=== PATIENT | female | born 1995 ===

== ENCOUNTER 2018-12-02 21:07 | Emergency (ER) | payer SELFPAY ==
--- NOTE | 2018-12-02 22:10 | UC ---
Skin Complaint HPI - HPI Summary HPI Summary: 23 y/o female presents to the urgent care c/o hives on her back , axilla, abdomen and lower legs since yesterday. Pt reports last night she felt her ear were itchy and red. When she woke up this morning she had hives on her axilla and back. Now, it is spreading in her abdomen and face. States only itchiness, no throat tightening, SOB, difficulty breathing. Pt denies eating new food, change in detergent, or body lotions or new deodorant, change in medication or Hx of STD's. Pt states she had a similar episode which was worse about 4 years ago, and she was told it was stress. Pt denies fever, dizziness, AGUILAR, travel outside the country, URI, cough, abdominal pain, N/v/D. - History of Current Complaint Chief Complaint: UCAllergicReaction Time Seen by Provider: 12/02/18 22:05 Stated Complaint: RASH Hx Obtained From: Patient Hx Last Menstrual Period: [id number] ?: No Onset/Duration: Gradual Onset, Lasting Days - 1 day, Still Present, Worse Since - this morning Skin Exposure Onset/Duration: Days Ago - 1 day Timing: Constant Onset Severity: Mild Current Severity: Moderate Pain Intensity: 0 Pain Scale Used: 0-10 Numeric Location: Diffuse - face, axillas, B/l arms, abdomens, chest, back and B/L lower legs Character: Pruritus, Hives, Redness Aggravating Factor(s): Touch, Other - a lot of itchiness Alleviating Factor(s): Nothing Associated Signs & Symptoms: Positive: Rash - face, B/l axilla, back, abdomen, and B/l thighs. Negative: Fever, Chills, Drainage, Tenderness Related History: Possible Reaction to: Environmental Exposure - Allergy/Home Medications Allergies/Adverse Reactions: Allergies Allergy/AdvReac Type Severity Reaction Status Date / Time No Known Allergies Allergy Verified 12/02/18 21:32 PMH/Surg Hx/FS Hx/Imm Hx Previously Healthy: Yes - Pt denies PMHX - Surgical History Surgical History: None - Family History Known Family History: Positive: None - Pt denies FMHX - Social History Occupation: Student Lives: With Family Alcohol Use: Weekly Substance Use Type: None Smoking Status (MU): Never Smoked Tobacco - Immunization History Vaccination Up to Date: Yes Review of Systems All Other Systems Reviewed And Are Negative: Yes Constitutional: Positive: Negative Skin: Positive: Rash - itchy hives on face, back, abdomen, B/L thighs Eyes: Positive: Negative ENT: Positive: Negative Respiratory: Positive: Negative Cardiovascular: Positive: Negative Gastrointestinal: Positive: Negative Genitourinary: Positive: Negative Motor: Positive: Negative Neurovascular: Positive: Negative Musculoskeletal: Positive: Negative Neurological: Positive: Negative Psychological: Positive: Negative Is Patient Immunocompromised?: No Physical Exam - Summary Physical Exam Summary: Vital Signs Reviewed: Yes General: well appearing, well female nourished in no acute apparent pain distress, sitting comfortably on examining table Eye Exam: Normal Eyes: Positive: Conjunctiva Clear - PERRLA< EOMI, fundi grossly normal ENT: Positive: Normal ENT inspection, Hearing grossly normal, Pharynx normal, TMs normal Neck: Positive: Supple, Nontender, No Lymphadenopathy Respiratory: Positive: Chest non-tender, Lungs clear, Normal breath sounds, No respiratory distress Cardiovascular: Positive: RRR, No Murmur, Pulses Normal, Brisk Capillary Refill Abdomen Description: Positive: Nontender, No Organomegaly, Soft. Negative: CVA Tenderness (R), CVA Tenderness (L) Bowel Sounds: Positive: Present Musculoskeletal: Positive: Strength Intact, ROM Intact, No Edema Neurological: Positive: Alert, Muscle Tone Normal Psychological Exam: Normal Skin: Positive: Positive hives of different shapes in B/L axilla, back, abdomen , B/L thighs and mild around face and arms w/ signs of excoriation. non tender to palpation, no swelling, no drainage observed, Triage Information Reviewed: Yes Vital Signs: Initial Vital Signs Temp 99.7 F 12/02/18 21:28 Pulse 70 12/02/18 21:28 Resp 16 12/02/18 21:28 BP 109/64 12/02/18 21:28 Pulse Ox 100 12/02/18 21:28 Course/Dx - Course Course Of Treatment: 23 y/o female presents to the urgent care c/o hives on her back , axilla, abdomen and lower legs since yesterday. Pt reports last night she felt her ear were itchy and red. When she woke up this morning she had hives on her axilla and back. Now, it is spreading in her abdomen and face. States only itchiness, no throat tightening, SOB, difficulty breathing. Pt denies eating new food, change in detergent, or body lotions or new deodorant, change in medication or Hx of STD's. Pt states she had a similar episode which was worse about 4 years ago, and she was told it was stress. Pt denies fever, dizziness, AGUILAR, travel outside the country, URI, cough, abdominal pain, N/v/D. Hx obtained. Pt w/ Positive hives of different shapes in B/L axilla, back, abdomen, B/L thighs and mild around face and arms w/ signs of excoriation. non tender to palpation, no swelling, no drainage observed on examination. Pt Given Methylprednisolone IM and Benadryl inj by nurse. Pt tolerated well IM injs. Pt RX Prednisone PO taper dose, Caladryl topical lotion, Benadryl PO to alleviate symptoms. Pt strongly advised to f/u w/ her PCP or Field [employer] Supervisor DR Rice to do an analytical data scientist panels to identify the cause of her allergy. D/C instructions explained. Pt understood and agreed w/ plan of care and left the clinic ambulating and hemodynamically stable. - Differential Diagnoses - Skin Complaint Differential Diagnoses: Abscess, Allergic Reaction, Contact Dermatitis, Drug Rash, Eczema, Local Allergic Reaction, Urticaria - Diagnoses Provider Diagnosis: Allergic reaction, Rash, Pruritus Discharge - Sign-Out/Discharge Documenting (check all that apply): Patient Departure - d/C home All imaging exams completed and their final reports reviewed: No Studies - Discharge Plan Condition: Stable Disposition: HOME Prescriptions: Calamine/Pramoxine LOTION* [Caladryl LOTION*] 1 applic .SEE ORDER BID #1 btl diPHENhydraMINE PO* [Benadryl PO 25 MG TAB*] 25 mg PO Q6H PRN #30 tab PRN Reason: rash predniSONE TAB* [Deltasone 20 MG TAB*] 20 mg PO DAILY #11 tab Patient Education Materials: General Allergic Reaction (ED) Referrals: Mike Rice MD [Medical Doctor] - 1 Week [facility]Outside] - 2 Days Additional Instructions: 1-Please Start taking Prednisone PO taper dose starting tomorrow. first loading dose given today at the clinic. 2- Continue taking Benadryl PO to alleviate itchiness. Apply Calamide topical lotion as directed. 3-If symptoms do not improve or worsen please f/u with your PCP in 2-3 days for further evaluation and treatment. 4- Please f/u w/ Field Assembly Supervisor DR Rice to identify what is the cause of your allergies and further management 5- If symptoms worsen and you develop SOB or difficulty breathing please go immediately to the Er for further management. - Billing Disposition and Condition Condition: STABLE Disposition: Home
[2018-12-02] MEDS ORDERED: methylPREDNISolone 125 MG* 2 ML VIAL IM ONE (22:17)
[2018-12-02] MEDS ORDERED: diPHENhydraMINE IV* 50 MG/ML 1 ml VIAL (BENADRYL) IM ONE (22:18)
== END 2018-12-02 22:58 | disposition home or self-care (01) ==
LOC: UCEAST 21:07
DX: T78.40XA Allergy, unspecified, initial encounter (principal); X58.XXXA Exposure to other specified factors, initial encounter; R21 Rash and other nonspecific skin eruption; L29.9 Pruritus, unspecified
CPT/HCPCS: 96372; 99202; G0463; J1200; J2930